=== PATIENT | female | born 1990 | race Caucasian/White ===

== ENCOUNTER 2017-04-10 22:37 | Inpatient (IN) | payer BC ==
[2017-04-10 23:19] LABS: ROM Internal QC QC Line Present
[2017-04-11] MEDS ORDERED: Oxytocin in LR* 20 UNITS/1,000 ML BAG IVPB ONE (01:33)
[2017-04-11] MEDS ORDERED: Oxytocin in LR* 20 UNITS/1,000 ML BAG IVPB SCH ×2 (02:00→18:00)
[2017-04-11 02:50] LABS: Hematocrit 38 % (35-47); Hemoglobin 12.8 g/dl (12.0-16.0); Mean Corpuscular HGB Conc 34 g/dl (31-36); Mean Corpuscular Hemoglobin 32 pg (27-31); Mean Corpuscular Volume 94 fL (80-97); Mean Platelet Volume 10 um3 (7.4-10.4); Red Blood Count 4.01 10^6/ul (4.0-5.4); Red Cell Distribution Width 13 % (10.5-15); White Blood Count 15.9 10^3/ul (3.5-10.8)
[2017-04-11] MEDS ORDERED: OBEPIDURAL* 250 ML ONE (10:45)
[2017-04-11] MEDS ORDERED: Ondansetron INJ* 2 MG/ML VIAL IV ONE (10:50)
[2017-04-11] MEDS ORDERED: Ondansetron INJ* 2 MG/ML VIAL ONE (10:51)
[2017-04-11] MEDS ORDERED: fentaNYL* 50 MCG/ML 2 ML VIAL (100 MCG VIAL) ONE (11:42)
[2017-04-11] MEDS ORDERED: Sodium Citrate/Citric Acid* 15 ML UDC PO PRN (13:06)
[2017-04-11] MEDS ORDERED: Famotidine TAB* 20 MG PO PRN (13:06)
[2017-04-11] MEDS ORDERED: EPHEDrine (Pressors)* 50 MG/ML VIAL IV PUSH PRN ×2 (13:06)
[2017-04-11] MEDS ORDERED: Phenylephrine IV* 40 MCG/ML 10 ML SYRINGE IV PUSH PRN ×2 (13:06)
[2017-04-11] MEDS ORDERED: fentaNYL* 50 MCG/ML 2 ML VIAL (100 MCG VIAL) IV ONE (13:08)
[2017-04-11] MEDS ORDERED: OBEPIDURAL* 250 ML EPIDURAL SCH (14:00)
[2017-04-11] MEDS ORDERED: Glycerin ADULT SUPP PR PRN (17:16)
[2017-04-11] MEDS ORDERED: Dibucaine 1% 28.35 GM TUBE ONE (17:20)
[2017-04-11] MEDS ORDERED: Witch Hazel PAD* JAR ONE (17:20)
[2017-04-11] MEDS ORDERED: Simethicone TAB* 80 MG TAB.CHEW PO SCH (17:30)
[2017-04-11] MEDS: Dibucaine 1% 28.35 GM TUBE PR PRN (17:36)
[2017-04-11] MEDS: Witch Hazel PAD* JAR TOPICAL PRN (17:36)
[2017-04-11] MEDS: Ibuprofen TAB* 600 MG PO PRN (18:31)
[2017-04-11] MEDS: Acetaminophen TAB* 325 MG PO PRN (22:07)
[2017-04-11] MEDS: Docusate CAP* 100 MG PO SCH (22:07)
[2017-04-12] MEDS: Ibuprofen TAB* 600 MG PO PRN ×4 (03:13→23:35)
[2017-04-12] MEDS: Witch Hazel PAD* JAR TOPICAL PRN ×2 (05:29→17:47)
[2017-04-12] MEDS: Dibucaine 1% 28.35 GM TUBE PR PRN ×2 (05:30→17:47)
[2017-04-12 07:01] LABS: Hematocrit 34 % (35-47); Hemoglobin 11.6 g/dl (12.0-16.0); Mean Corpuscular HGB Conc 35 g/dl (31-36); Mean Corpuscular Hemoglobin 32 pg (27-31); Mean Corpuscular Volume 93 fL (80-97); Mean Platelet Volume 9 um3 (7.4-10.4); Red Blood Count 3.63 10^6/ul (4.0-5.4); Red Cell Distribution Width 13 % (10.5-15); White Blood Count 16.3 10^3/ul (3.5-10.8)
[2017-04-12] MEDS: Acetaminophen TAB* 325 MG PO PRN ×3 (07:59→20:58)
[2017-04-12] MEDS: Docusate CAP* 100 MG PO SCH ×3 (07:59→20:58)
[2017-04-12] MEDS ORDERED: Ferrous Gluconate TAB* 324 MG TAB PO SCH (09:00)
[2017-04-12 20:44] VITALS: BP 127/69
--- NOTE | 2017-04-12 22:01 | PTEDU ---
Patient Name: TAO BYRNE TAO BYRNE selected video: Follow Me Mum: [facility] [employer] [facility] Successful to view on 04/12 at 10:00:55 PM [id number]
[2017-04-13] MEDS: Acetaminophen TAB* 325 MG PO PRN ×2 (02:08→08:08)
[2017-04-13] MEDS: Ibuprofen TAB* 600 MG PO PRN (05:33)
[2017-04-13] MEDS: Docusate CAP* 100 MG PO SCH (08:09)
== END 2017-04-13 11:25 | disposition home or self-care (01) | DRG 560 ==
LOC: MCHOBOUT 22:37 → MCHOB 04-11 01:18
PROVIDERS: ADMIT Obstetrics & Gynecology; ATTEND Obstetrics & Gynecology
PROC: 10E0XZZ Delivery of Products of Conception, External Approach (ICD-10-PCS; principal; 2017-04-11)
PROC: 4A1HX4Z Monitoring of Products of Conception, Cardiac Electrical Activity, External Approach (ICD-10-PCS; 2017-04-11)
PROC: 10907ZC Drainage of Amniotic Fluid, Therapeutic from Products of Conception, Via Natural or Artificial Opening (ICD-10-PCS; 2017-04-11)
PROC: 0HQ9XZZ Repair Perineum Skin, External Approach (ICD-10-PCS; 2017-04-11)
PROC: 0UQG7ZZ Repair Vagina, Via Natural or Artificial Opening (ICD-10-PCS; 2017-04-11)
PROC: 10H07YZ Insertion of Other Device into Products of Conception, Via Natural or Artificial Opening (ICD-10-PCS; 2017-04-11)
PROC: 10H073Z Insertion of Monitoring Electrode into Products of Conception, Via Natural or Artificial Opening (ICD-10-PCS; 2017-04-11)
DX: O42.113 Preterm premature rupture of membranes, onset of labor more than 24 hours following rupture, third trimester (principal); O71.4 Obstetric high vaginal laceration alone; O70.0 First degree perineal laceration during delivery; Z3A.36 36 weeks gestation of pregnancy; Z37.0 Single live birth
CPT/HCPCS: 36415; 84112; 85025; 86850; 86900; 86901; A9270-GY; J2405; J3010

== ENCOUNTER 2019-01-27 13:34 | Inpatient (IN) | payer BC ==
[2019-01-27] MEDS ORDERED: Buffered Lidocaine 1% SYRIN* 1 ML/SYRINGE INTRADERM ONE (14:28)
[2019-01-27] MEDS ORDERED: Lactated Ringers 1000 ML Bag* 1,000 ML IV ONE ×2 (14:28→20:56)
[2019-01-27] MEDS ORDERED: Penicillin G Potassium IV* 5,000,000 UNITS in NS 0.9% 100 ML* 100 ML IVPB ONE (14:28)
--- NOTE | 2019-01-27 14:35 | HP ---
General Information - Reason for Visit Pre eclampsia - General Information Maternal Age: 28 Grav: 3 Para: 1 SAB: 1 IEA: 0 Estimated Due Date: 02/13/19 Determined By: LMP Maternal Blood Type and Rh: O Positive - Results this Serology/RPR Result: Non-Reactive Rubella Result: Immune HBsAg Result: Negative HIV Result: Negative GBS Culture Result: Positive Past Medical History Delivery History: See Records Pertinent Past Medical History: See Records Pertinent Past Surgical History: See Records Pertinent Family History: See Records - Antepartal Records Antepartal Records: Reviewed, Complicated by: - obesity preeclampsia Review of Systems Constitutional: Comfortable CV Complaint: No Respiratory: Shortness of Breath: No Gastrointestinal: No Nausea/Vomiting Genitourinary: No Dysuria, No Bleeding, No Leaking Fluid Musculoskeletal: No Complaint Neurological: No Headache Movement: Normal Exam Allergies/Adverse Reactions: Allergies No Known Allergies Allergy (Verified 12/27/18 04:28) BP : 139/85 T:99.7 P : 100 - Measurements Height: 5 ft 5 in Weight: 299 lb Weight in lbs: 299.571184 Body Mass Index (BMI): 49.7 Pre- Weight: 230 lb Weight Gained This : 69 lbs and 0 ozs - Exam Breast: Breast Exam Deferred CVA: No CVA Tenderness Extremities: No Edema Heart: Normal Rhythm/Heart Sounds HEENT: No Significant Findings Lungs: Clear Bilaterally Rectal: Rectal Exam Deferred Reflexes: DTR 2+ Thyroid: No Thyromegaly - Abdominal Exam Abdomen Exam: Non-Tender - Ultrasound/Biophysical Profile Ultrasound Status: Not Done Targeted Exam Findings Cervical Exam: 2cm Effacement: 80% Station: 0 Presenting Part: Vertex Membrane Status: Intact EFM Findings - External Monitor Findings Baseline Heart Rate: 140 External Monitor Findings: Accelerations Present, No Pattern of Variable or Late Decelerations, Variability Moderate Contractions: Irregular Assessment/Plan - Obstetrical Risk Factors Obstetrical Risk Factors: GBS Positive, PreEclampsia - Plan Plan: Antibiotic Prophylaxis, Admit - Anticipate Vaginal Delivery - Date/Time of Admission Date of Admission: 01/27/19 Time of Admission: 14:25
[2019-01-27] MEDS ORDERED: Lactated Ringers 1000 ML Bag* 1,000 ML IV SCH ×3 (15:00→23:00)
[2019-01-27] MEDS ORDERED: Oxytocin in LR* 20 UNITS/1,000 ML BAG IVPB SCH ×2 (15:00→23:00)
[2019-01-27 15:31] LABS: Urine Benzodiazepine Screen None Detected (None Detect); Urine Opiates Screen None Detected (None Detect)
[2019-01-27 16:19] LABS: ABS Lymphocytes 1.7 10^3/ul (1.0-4.8); ABS Monocytes 0.7 10^3/ul (0-0.8); ABS Neutrophils 10.2 10^3/ul (1.5-7.7); Eosinophil % 0.3 %; Hematocrit 35 % (35-47); Lymphocyte % 13.2 %; Mean Corpuscular HGB Conc 34 g/dL (31-36); Mean Corpuscular Hemoglobin 31 pg (27-31); Mean Corpuscular Volume 91 fL (80-97); Mean Platelet Volume 10.1 fL (7.4-10.4); Nucleated Red Blood Cells % 0.1; Platelet Count 219 10^3/uL (150-450); Red Blood Count 3.84 10^6 /uL (3.70-4.87); Red Cell Distribution Width 13 % (10-15); White Blood Count 12.6 10^3/uL (3.5-10.8)
[2019-01-27] MEDS ORDERED: Penicillin G Potassium IV* 2,500,000 UNITS in NS 0.9% 100 ML* 100 ML IVPB SCH (19:00)
[2019-01-27] MEDS ORDERED: OBEPIDURAL* 250 ML EPIDURAL ONE (20:03)
[2019-01-27] MEDS ORDERED: Chloroprocaine 2%* 20 ML VIAL ONE (20:47)
[2019-01-27] MEDS ORDERED: Famotidine TAB* 20 MG PO PRN (20:56)
[2019-01-27] MEDS ORDERED: Sodium Citrate/Citric Acid* 15 ML UDC PO PRN (20:56)
[2019-01-27] MEDS ORDERED: Phenylephrine 40 MCG/ML SYRINGE IV PUSH PRN (20:56)
[2019-01-27] MEDS ORDERED: OBEPIDURAL* 250 ML EPIDURAL SCH (21:00)
[2019-01-27] MEDS ORDERED: Glycerin ADULT SUPP PR PRN (22:23)
[2019-01-27] MEDS ORDERED: Dibucaine 1% 28.35 GM TUBE PR PRN (22:23)
[2019-01-27] MEDS ORDERED: Witch Hazel PAD* JAR TOPICAL PRN (22:23)
--- NOTE | 2019-01-27 22:23 | PROCNOTE ---
[facility] OB: Delivery Note - Delivery A Date of : 01/27/19 Time of : 21:31 Sex: Female Score 1 Minute: 9 Score 5 Minutes: 9 Gestational Age in Weeks and Days at Delivery: 37 Weeks and 4 Days Delivery Method: Spontaneous Vaginal Did Patient attempt ?: N/A, No Previous Amniotic Fluid: Clear Estimated Blood Loss: 300 Anesthesia/Analgesia: CEI for Labor Delivered By: Ana Grullon - Nursery Level of Nursery: Regular/Bedside - Perineum Perineal Injury: None/Intact - Events Delivery Events of Note: Pitocin During Labor, Supplemental O2 to Mother, Full Course of Antibiotics, Internal Scalp EKG, IUPC Use
[2019-01-27] MEDS: Ibuprofen TAB* 600 MG PO PRN (22:52)
[2019-01-28] MEDS: Acetaminophen TAB* 325 MG PO PRN ×4 (04:22→20:44)
[2019-01-28] MEDS: Ibuprofen TAB* 600 MG PO PRN ×4 (04:51→23:04)
[2019-01-28 06:25] LABS: ABS Basophils 0.1 10^3/ul (0-0.2); ABS Lymphocytes 1.7 10^3/ul (1.0-4.8); Eosinophil % 0.2 %; Hematocrit 33 % (35-47); Hemoglobin 11.2 g/dL (12.0-16.0); Mean Corpuscular HGB Conc 34 g/dL (31-36); Mean Corpuscular Hemoglobin 31 pg (27-31); Mean Corpuscular Volume 92 fL (80-97); Mean Platelet Volume 9.7 fL (7.4-10.4); Platelet Count 186 10^3/uL (150-450); Red Blood Count 3.57 10^6 /uL (3.70-4.87); Red Cell Distribution Width 13 % (10-15); White Blood Count 15.9 10^3/uL (3.5-10.8)
[2019-01-28] MEDS ORDERED: Simethicone TAB* 80 MG TAB.CHEW PO SCH (08:30)
[2019-01-28] MEDS: Docusate CAP* 100 MG PO SCH ×3 (09:00→20:44)
[2019-01-28] MEDS ORDERED: Ferrous Gluconate TAB* 324 MG TAB PO SCH (09:00)
[2019-01-29] MEDS: Acetaminophen TAB* 325 MG PO PRN ×2 (04:04→10:59)
[2019-01-29] MEDS: Ibuprofen TAB* 600 MG PO PRN ×2 (08:14→14:01)
[2019-01-29] MEDS: Docusate CAP* 100 MG PO SCH ×2 (08:14→14:01)
[2019-01-29 08:37] VITALS: BP 118/61
== END 2019-01-29 16:49 | disposition home or self-care (01) | DRG 560 ==
LOC: MCHOBOUT 13:34 → MCHOB 14:22 → UNDOADMIN 14:22 → MCHOB 14:28 → UNDOADMIN 01-29 16:40 → UNDODISIN 01-29 16:49
PROVIDERS: ADMIT Obstetrics & Gynecology; ATTEND Obstetrics & Gynecology
PROC: 10E0XZZ Delivery of Products of Conception, External Approach (ICD-10-PCS; principal; 2019-01-27)
PROC: 3E033VJ Introduction of Other Hormone into Peripheral Vein, Percutaneous Approach (ICD-10-PCS; 2019-01-27)
PROC: 10907ZC Drainage of Amniotic Fluid, Therapeutic from Products of Conception, Via Natural or Artificial Opening (ICD-10-PCS; 2019-01-27)
DX: O14.94 Unspecified pre-eclampsia, complicating childbirth (principal); Z37.0 Single live birth; O99.214 Obesity complicating childbirth; O99.824 Streptococcus B carrier state complicating childbirth; Z3A.37 37 weeks gestation of pregnancy
CPT/HCPCS: 36415; 80307; 85025; 86850; 86900; 86901; A9270-GY; J2400; J2540

== ENCOUNTER 2019-07-10 07:05 | Emergency (ER) | payer BC ==
--- OUTSIDE RECORDS SUMMARY | 2019-07-10 07:12 | XMS REPORT | Continuity of Care Document ---
:1990 External Reference #:[id number] Author Name Janice Cerna N.P. (transmitted by agent of provider Татьяна [place]) Address [address] [facility], [address] [place] [id number] Care Team Providers Name Role Phone Tia Cerna F.N.P. - Family Care Team Information Tech Intern Problems Description No Information Available Social History Type Date Description Comments Sex Unknown Tobacco Use Start: Unknown Never Smoked Cigarettes Smoking Status Reviewed: 05/26/19 Never Smoked Cigarettes ETOH Use Never used alcohol Exercise Type/Frequency Exercises regularly Allergies, Adverse Reactions, Alerts Description No Known Drug Allergies Medications Active Medications SIG Qnty Indications Ordering Date Provider Estrace one application 42.500gm Janice Cerna, 05/26/2019 0.1mg/GM nightly x 2 weeks N.P. Cream and then twice a week + Dha 1 by mouth every Unknown day 27-1&250mg THPK Calcium 600+D3 1 by mouth twice a Unknown day [id number] Tablets Probiotic 1 by mouth every Unknown Capsules day Immunizations Description No Information Available Vital Signs Date Vital Result Comment 05/26/2019 8:15am Height 65 inches 5'5" Weight 265.31 lb Heart Rate 77 /min BP Systolic 125 mmHg BP Diastolic 90 mmHg O2 % BldC Oximetry 97 % BMI (Body Mass Index) 44.1 kg/m2 Results Description No Information Available Procedures Description No Information Available Medical Devices Description No Information Available Encounters Description No Information Available Assessments Date Code Description Provider 05/26/2019 R10.2 Pelvic and perineal pain Marilyn WorthyPShania 05/26/2019 N94.6 Dysmenorrhea, unspecified Janice Nehemiah, N.P. Plan of Treatment Future Appointment(s):03/13/2020 3:10 pm - Crystal Yu MD at [facility] [id number]/16/2020 - Sherie Worthy.P.R10.2 Pelvic and perineal painComments: I suspect that your symptoms are do to atrophic vaginitis. I recommend a pea sized amount of estrace to the vulva 2-3 times a week, increase as needed.I have also sent a vaginitis swab and will follow up with you regarding results.N94.6 Dysmenorrhea, unspecifiedComments:Period Repair Manual - Nesha Bennett Functional Status Description No Information Available Mental Status Description No Information Available Referrals Description No Information Available
[2019-07-10 07:24] VITALS: BP 108/76
[2019-07-10 07:29] LABS: Influenza A Molecular POSITIVE (Negative)
--- NOTE | 2019-07-10 07:31 | UC ---
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 Frequent exposure to flu; has had flu vaccine. 5 mo; children without symptoms at this time. No acetaminophen or ibuprofen today. - History of Current Complaint Stated Complaint: CHILLS BODYACHES COUGH Time Seen by Provider: 07/10/19 07:16 Hx Obtained From: Patient Hx Last Menstrual Period: 05/10/18 Onset/Duration: Gradual Onset, Lasting Days - 2 Severity Currently: Moderate Pain Intensity: 0 Associated Signs & Symptoms: Positive: Fever, Myalgia, Cough, Nasal Congestion Related Hx: Possible Flu/Infectious Exposure - Risk Factors Influenza Risk Factors: Negative - Allergy/Home Medications Allergies/Adverse Reactions: Allergies Allergy/AdvReac Type Severity Reaction Status Date / Time No Known Allergies Allergy Verified 12/27/18 04:28 Home Medications: Home Medications Vitamin [Calna] 1 tab PO DAILY 04/08/17 [History Confirmed 01/27/19] Calcium 500 + Vit D Caplet 1 tab PO DAILY 01/27/19 [History Confirmed 01/27/19] Magnesium Oxide [Magnesium] 500 mg PO DAILY 07/10/19 [History Confirmed 07/10/19 ] Oseltamivir CAP* [Tamiflu CAP*] 75 mg PO BID #10 cap 07/10/19 [Rx] Pyridoxine TAB* [Vitamin B6 TAB*] 50 mg PO DAILY MDD 1 07/10/19 [History Confirmed 07/10/19] PMH/Surg Hx/FS Hx/Imm Hx Previously Healthy: Yes Other History Of: Negative For: HIV, Hepatitis B, Hepatitis C, Anticoagulant Therapy - Surgical History Surgical History: Yes Surgery Procedure, Year, and Place: left acl reconstruction 03/18. left knee arthroscopy 08/17 - Family History Known Family History: Positive: Hypertension - mother - Social History Occupation: Employed Full-time Lives: With Family Alcohol Use: None Substance Use Type: None Smoking Status (MU): Never Smoked Tobacco Have You Smoked in the Last Year: No - Immunization History Most Recent Influenza Vaccination: 2018 Most Recent Tetanus Shot: 2006 Most Recent Pneumonia Vaccination: never Review of Systems All Other Systems Reviewed And Are Negative: Yes Constitutional: Positive: Fever, Fatigue Skin: Positive: Negative Eyes: Positive: Negative ENT: Positive: Nasal Discharge Respiratory: Positive: Cough. Negative: Shortness Of Breath Cardiovascular: Positive: Negative. Negative: Chest Pain Gastrointestinal: Positive: Negative Genitourinary: Positive: Negative Motor: Positive: Negative Neurovascular: Positive: Negative Musculoskeletal: Positive: Myalgia Neurological/Mental Status: Positive: Negative Psychological: Positive: Negative Is Patient Immunocompromised?: No Physical Exam Triage Information Reviewed: Yes Appearance: Ill-Appearing, Obese Vital Signs: Initial Vital Signs Temp 99.1 F 07/10/19 07:18 Pulse 86 07/10/19 07:18 Resp 18 07/10/19 07:18 BP 108/76 07/10/19 07:18 Pulse Ox 96 07/10/19 07:18 ENT: Positive: Pharyngeal erythema, TMs normal. Negative: Tonsillar swelling, Tonsillar exudate Neck: Positive: Supple, Nontender, No Lymphadenopathy Respiratory: Positive: Lungs clear, Normal breath sounds, No respiratory distress Cardiovascular: Positive: RRR, No Murmur Musculoskeletal Exam: Normal Neurological Exam: Normal Psychological Exam: Normal Skin Exam: Normal Diagnostics - Laboratory Lab Results: Influenza A positive. Flu Course/Dx - Course Course Of Treatment: Discussed treatment; will try Tamiflu. Aware to contact merry go round operator regarding tx of children. - Differential Dx/Diagnosis Differential Diagnosis/HQI/PQRI: Influenza, Upper Respiratory Infection Provider Diagnosis: Influenza A Discharge ED - Sign-Out/Discharge Documenting (check all that apply): Patient Departure All imaging exams completed and their final reports reviewed: No Studies - Discharge Plan Condition: Stable Disposition: HOME Prescriptions: Oseltamivir CAP* [Tamiflu CAP*] 75 mg PO BID #10 cap Patient Education Materials: Influenza (ED) Forms: *Work Release Referrals: Tia Cerna NP [Primary Care Provider] - Additional Instructions: Ensure increase rest and fluids, with increase in fluids being important to prevent dehydration Tamiflu has been sent in for you to help to glunt the symptoms. Check in with your children's merry go round operator regarding Tamiflu use for prevention. Follow up if you develop increasing shortness of breath or chest pain. - Billing Disposition and Condition Condition: STABLE Disposition: Home
== END 2019-07-10 07:51 | disposition home or self-care (01) ==
LOC: UCEAST 07:05
DX: J10.1 Influenza due to other identified influenza virus with other respiratory manifestations (principal)
CPT/HCPCS: 99212; G0463

== ENCOUNTER 2021-08-27 07:55 | Inpatient (IN) ==
[2021-08-27] MEDS ORDERED: Lactated Ringers 1000 ml BAG 1,000 ML IV ONE ×2 (08:11→20:19)
[2021-08-27] MEDS ORDERED: Buffered Lidocaine 1% SYRIN 1 ml INTRADERM ONE (08:11)
[2021-08-27] MEDS ORDERED: Penicillin G Potassium IV 5,000,000 UNITS in NS 0.9% 100 ml BAG 100 ML IVPB ONE (08:11)
[2021-08-27] MEDS ORDERED: Lactated Ringers 1000 ml BAG 1,000 ML IV SCH ×4 (09:00→23:45)
[2021-08-27 09:36] LABS: Urine Benzodiazepine Screen None Detected (None Detect); Urine Cannabinoids Screen None Detected (None Detect); Urine Opiates Screen None Detected (None Detect)
[2021-08-27 16:50] LABS: ABS Eosinophils 0.1 10^3/ul (0-0.6); ABS Lymphocytes 1.8 10^3/ul (1.0-4.8); ABS Monocytes 0.7 10^3/ul (0-0.8); ABS Neutrophils 9.3 10^3/ul (1.5-7.7); Eosinophil % 0.5 %; Hematocrit 36 % (35-47); Hemoglobin 11.8 g/dL (12.0-16.0); Lymphocyte % 15.3 %; Mean Corpuscular HGB Conc 33 g/dL (31-36); Mean Corpuscular Hemoglobin 30 pg (27-31); Mean Corpuscular Volume 91 fL (80-97); Platelet Count 222 10^3/uL (150-450); Red Blood Count 3.92 10^6 /uL (3.70-4.87); Red Cell Distribution Width 13 % (10-15); White Blood Count 11.9 10^3/uL (3.5-10.8)
[2021-08-27] MEDS ORDERED: Oxytocin in LR 20 UNITS/1,000 ML BAG IVPB SCH ×2 (17:00→23:45)
[2021-08-27] MEDS ORDERED: OBEPIDURAL (200 ML) 200 ML EPIDURAL ONE (19:20)
[2021-08-27] MEDS ORDERED: Lidocaine 1.5% EPI 1:200,000 30 ML SDV ONE (19:30)
[2021-08-27] MEDS ORDERED: Phenylephrine 40 mcg/mL 10mL (400mcg) SYRINGE IV PUSH PRN ×2 (20:19)
[2021-08-27] MEDS ORDERED: Lactated Ringers 1000 ml BAG 500 ML IV PRN (20:19)
[2021-08-27] MEDS ORDERED: Sodium Citrate/Citric Acid LIQ 15 ML UDC PO PRN (20:19)
[2021-08-27] MEDS ORDERED: EPHEDrine (Pressors) 50 MG/ML VIAL IV PUSH PRN ×2 (20:19)
[2021-08-27] MEDS ORDERED: OBEPIDURAL (200 ML) 200 ML EPIDURAL SCH (21:00)
[2021-08-27] MEDS ORDERED: Penicillin G Potassium IV 3,000,000 UNITS in NS 0.9% 100 ml BAG 100 ML IVPB SCH (21:00)
[2021-08-27 21:47] LABS: Urine Appearance Clear; Urine Bilirubin Negative (Negative); Urine Blood Negative (Negative); Urine Color Straw; Urine Glucose Negative (Negative); Urine Ketones Negative (Negative); Urine Nitrite Negative (Negative); Urine Protein Negative (Negative); Urine Specific Gravity 1.005 (1.002-1.030); Urine Urobilinogen Negative (Negative)
[2021-08-27] MEDS ORDERED: Dibucaine 1% OINT 28.35 GM TUBE PR PRN (23:36)
[2021-08-27] MEDS ORDERED: Witch Hazel PAD JAR TOPICAL PRN (23:36)
[2021-08-27] MEDS ORDERED: Glycerin ADULT 2.4 gm SUPP PR PRN (23:36)
[2021-08-28 08:01] LABS: ABS Basophils 0.1 10^3/ul (0-0.2); ABS Eosinophils 0.1 10^3/ul (0-0.6); ABS Lymphocytes 1.4 10^3/ul (1.0-4.8); ABS Monocytes 0.9 10^3/ul (0-0.8); Eosinophil % 0.5 %; Hematocrit 33 % (35-47); Hemoglobin 11.3 g/dL (12.0-16.0); Lymphocyte % 11.3 %; Mean Corpuscular HGB Conc 35 g/dL (31-36); Mean Corpuscular Hemoglobin 31 pg (27-31); Mean Corpuscular Volume 90 fL (80-97); Platelet Count 192 10^3/uL (150-450); Red Blood Count 3.62 10^6 /uL (3.70-4.87); Red Cell Distribution Width 14 % (10-15); White Blood Count 12.4 10^3/uL (3.5-10.8)
[2021-08-29 19:59] VITALS: BP 154/81
== END 2021-08-29 18:30 | disposition home or self-care (01) | DRG 560 ==
LOC: MCHOBOUT 07:55 → MCHOB 08:16
PROVIDERS: ADMIT Obstetrics & Gynecology; ATTEND Obstetrics & Gynecology

== ENCOUNTER 2023-10-23 07:54 | Inpatient (IN) ==
[2023-10-23] MEDS ORDERED: Nalbuphine 10 MG/ML 1 ML VIAL IV PRN (08:39)
[2023-10-23] MEDS ORDERED: Lidocaine 1% VIAL 10 MG/ML 30 ML VIAL INJ PRN (08:39)
[2023-10-23] MEDS ORDERED: Prochlorperazine 5 mg/ml 2 ml VIAL (10 mg) IV PRN (08:39)
[2023-10-23] MEDS: miSOPROStol 100 mcg TAB VAGINAL ONE ×2 (08:54→14:08)
[2023-10-23 09:49] LABS: ABS Eosinophils 0.1 10^3/uL (0.0-0.5); ABS Lymphocytes 1.6 10^3/uL (1.0-4.8); ABS Monocytes 0.5 10^3/uL (0.0-0.9); ABS Neutrophils 7.9 10^3/uL (1.5-7.6); Eosinophil % 0.6 %; Hematocrit 33.7 % (35-45); Hemoglobin 11.5 g/dL (11.5-14.3); Mean Corpuscular Hemoglobin 30.4 pg (27-33); Mean Corpuscular Hgb Conc 34.1 g/dL (31-36); Mean Corpuscular Volume 89.2 fL (80-97); Mean Platelet Volume 9.7 fL (7.5-11.2); Platelet Count 175 10^3/uL (150-450); Red Blood Count 3.77 10^6/uL (3.63-4.92); Red Cell Distribution Width 13.6 % (12-17); White Blood Count 10.1 10^3/uL (3.8-11.8)
[2023-10-23 09:56] LABS: Urine Appearance Clear; Urine Bilirubin Negative (Negative); Urine Blood Negative (Negative); Urine Color Light-Yellow; Urine Glucose Negative (Negative); Urine Ketones Negative (Negative); Urine Nitrite Negative (Negative); Urine Protein Negative (Negative); Urine Specific Gravity 1.008 (1.002-1.030); Urine Urobilinogen Negative (Negative)
[2023-10-23 10:16] LABS: Urine Benzodiazepine Screen None Detected (None Detect); Urine Cannabinoids Screen None Detected (None Detect); Urine Opiates Screen None Detected (None Detect)
[2023-10-23] MEDS: Lactated Ringers 1000 ml BAG 1,000 ML IV ONE (10:20)
[2023-10-23] MEDS: Penicillin G Potassium IV 5,000,000 UNITS in NS 0.9% 100 ml BAG 100 ML IVPB ONE (10:20)
[2023-10-23] MEDS: Penicillin G Potassium IV 3,000,000 UNITS in NS 0.9% 100 ml BAG 100 ML IVPB SCH (14:59)
[2023-10-23] MEDS: Oxytocin in LR 20,000 MILLI.UNIT/1,000 ML BAG IV SCH (18:11)
[2023-10-23] MEDS: OBEPIDURAL (200 ML) 200 ML EPIDURAL ONE (22:20)
[2023-10-23] MEDS ORDERED: Sodium Citrate/Citric Acid LIQ 15 ML UDC PO PRN (22:36)
[2023-10-23] MEDS ORDERED: Phenylephrine 40 mcg/mL 10mL (400mcg) SYRINGE IV PUSH PRN (22:36)
[2023-10-23] MEDS: Phenylephrine 40 mcg/mL 10mL (400mcg) SYRINGE IV PUSH PRN (22:45)
[2023-10-24] MEDS ORDERED: Glycerin ADULT 2.4 gm SUPP PR PRN (01:24)
[2023-10-24] MEDS ORDERED: Lactated Ringers 1000 ml BAG 1,000 ML IV SCH (02:00)
[2023-10-24] MEDS: Witch Hazel PAD JAR TOPICAL PRN (02:25)
[2023-10-24] MEDS: Dibucaine 1% OINT 28.35 GM TUBE PR PRN (02:25)
[2023-10-24] MEDS: Oxytocin in LR 20,000 MILLI.UNIT/1,000 ML BAG IV SCH (02:26)
[2023-10-24] MEDS: Lidocaine 1.5% EPI 1:200,000 30 ML SDV ONE (07:12)
[2023-10-24] MEDS: Lactated Ringers 1000 ml BAG 1,000 ML IV SCH ×2 (07:12→07:13)
[2023-10-24] MEDS: Oxytocin in LR 0 MILLI.UNIT/0 ML BAG IV ONE (07:12)
[2023-10-24] MEDS: Lidocaine 2% w/ EPI 1:200,000 MPF 20 ML SDV VIAL ONE (07:12)
[2023-10-24] MEDS: Buffered Lidocaine 1% SYRIN 1 ml INTRADERM ONE (07:12)
[2023-10-24] MEDS: Lactated Ringers 1000 ml BAG 1,000 ML IV ONE (20:44)
[2023-10-24] MEDS: OBEPIDURAL (200 ML) 200 ML EPIDURAL SCH (20:44)
[2023-10-25 06:53] LABS: ABS Eosinophils 0.2 10^3/uL (0.0-0.5); ABS Lymphocytes 2.7 10^3/uL (1.0-4.8); ABS Monocytes 0.5 10^3/uL (0.0-0.9); ABS Neutrophils 6.3 10^3/uL (1.5-7.6); Eosinophil % 1.6 %; Hematocrit 30.3 % (35-45); Hemoglobin 10.5 g/dL (11.5-14.3); Lymphocyte % 27.8 %; Mean Corpuscular Hemoglobin 31.4 pg (27-33); Mean Corpuscular Hgb Conc 34.8 g/dL (31-36); Mean Corpuscular Volume 90.4 fL (80-97); Mean Platelet Volume 9.2 fL (7.5-11.2); Platelet Count 158 10^3/uL (150-450); Red Blood Count 3.35 10^6/uL (3.63-4.92); Red Cell Distribution Width 13.4 % (12-17); White Blood Count 9.7 10^3/uL (3.8-11.8)
[2023-10-26 08:30] VITALS: BP 117/79
== END 2023-10-26 09:55 | disposition home or self-care (01) | DRG 560 ==
LOC: MCHOBOUT 07:54 → MCHOB 08:45
PROVIDERS: ADMIT Obstetrics & Gynecology; ATTEND Obstetrics & Gynecology